=== PATIENT | male | born 1945 | race Asian ===

== ENCOUNTER 2017-11-01 13:45 | Emergency (ER) | payer MEDICARE ==
[~2017-11-01] VITALS: Ht 170.2 cm; Wt 103.9 kg
[~2017-11-01 13:45] MED LIST: ALLO100T30 PO; ALPR0.25 PO; AMIT25TA PO; AMLO5TAB2 PO; BUSP10TA PO; CETI5TAB5 PO; CHOL2000 PO; COLC0.6T37 PO; FINA5TAB4 PO; FOLI-17 PO; GUAI5SYR PO; HYDR200T72 PO; LEVO750T6 PO; LISI40TA PO; LOSA25TA5 PO; MELO7.5T31 PO; METH2.5T PO
[2017-11-01 13:46] VITALS: BP 168/77
[2017-11-01 14:28] LABS: BASOPHILS # (AUTO) 0.04 x10^3/uL (0-0.1); BASOPHILS % (AUTO) 0 % (0-1); EOSINOPHILS % (AUTO) 1 % (1-7); LYMPHOCYTES # (AUTO) 1.22 x10^3/uL (1-3.4); LYMPHOCYTES % (AUTO) 9 % (22-44); MD NO; MEAN CORPUSCULAR HEMOGLOBIN 29.6 pg (27.5-34.5); MEAN CORPUSCULAR HGB CONC 33.5 g/dL (33.2-36.2); MEAN CORPUSCULAR VOLUME 88.4 fL (81-97); MEAN PLATELET VOLUME 7.2 fL (7.4-10.4); MONOCYTES # (AUTO) 0.94 x10^3/uL (0.2-0.8); MONOCYTES % (AUTO) 7 % (2-9); NEUTROPHILS # (AUTO) 10.86 x10^3/uL (1.8-6.8); NEUTROPHILS % (AUTO) 83 % (42-75); PLATELET COUNT 239 x10^3/uL (130-400); RED BLOOD COUNT 5.07 x10^6/uL (4.38-5.82); RED CELL DISTRIBUTION WIDTH 13.6 % (9.4-14.8)
[2017-11-01 14:37] LABS: ALBUMIN 3.6 g/dL (3.4-5.0); ANION GAP 7 mmol/L (5-15); CALCIUM 8.2 mg/dL (8.5-10.1); CHLORIDE 105 mmol/L (98-107); CREATININE 1.37 mg/dL (0.7-1.3)
[2017-11-02] MEDS ORDERED: CEPH-368 PO (19:24)
== END 2017-11-01 15:35 | disposition home or self-care (01) ==
LOC: ED 15:26
DX: L03.011 Cellulitis of right finger (principal); M10.9 Gout, unspecified; M06.9 Rheumatoid arthritis, unspecified
CPT/HCPCS: 10060; 36415; 80048; 82040; 84550; 85025; 99285

== ENCOUNTER 2017-11-02 19:14 | Inpatient (IN) | payer MEDICARE ==
[~2017-11-02] VITALS: Ht 170.2 cm; Wt 107.5 kg
[2017-11-02] MEDS ORDERED: CEPH-368 PO (19:24)
[2017-11-02] MEDS ORDERED: SODIUM CHLORIDE 0.9% 1,000ML IVBOLUS ONE (19:30)
[2017-11-02] MEDS ORDERED: CLINDAMYCIN PMX 900MG/50ML 50 ML IVPB ONE (19:30)
[2017-11-02] MEDS ORDERED: SODIUM CHLORIDE FLUSH 10ML SYR IVF ONE (19:30)
[2017-11-02] MEDS ORDERED: CLINDAMYCIN PMX 900MG/50ML 50 ML ONE (19:50)
[2017-11-02 20:57] LABS: BASOPHILS # (AUTO) 0.06 x10^3/uL (0-0.1); BASOPHILS % (AUTO) 0 % (0-1); EOSINOPHILS # (AUTO) 0.01 x10^3/uL (0-0.4); EOSINOPHILS % (AUTO) 0 % (1-7); LYMPHOCYTES # (AUTO) 1.33 x10^3/uL (1-3.4); LYMPHOCYTES % (AUTO) 8 % (22-44); MD NO; MEAN CORPUSCULAR HEMOGLOBIN 29.6 pg (27.5-34.5); MEAN CORPUSCULAR VOLUME 89.6 fL (81-97); MEAN PLATELET VOLUME 7.4 fL (7.4-10.4); MONOCYTES # (AUTO) 1.27 x10^3/uL (0.2-0.8); MONOCYTES % (AUTO) 8 % (2-9); NEUTROPHILS # (AUTO) 13.51 x10^3/uL (1.8-6.8); NEUTROPHILS % (AUTO) 84 % (42-75); PLATELET COUNT 220 x10^3/uL (130-400); RED BLOOD COUNT 4.88 x10^6/uL (4.38-5.82); RED CELL DISTRIBUTION WIDTH 13.9 % (9.4-14.8)
[2017-11-02 20:59] LABS: ALBUMIN 3.2 g/dL (3.4-5.0); ANION GAP 8 mmol/L (5-15); CALCIUM 8.3 mg/dL (8.5-10.1); CHLORIDE 104 mmol/L (98-107)
[2017-11-02 21:00] LABS: CREATININE 1.57 mg/dL (0.7-1.3)
[2017-11-02] MEDS ORDERED: MORPHINE SULFATE 4 MG/ML, 1ML ONE (21:00)
[2017-11-02] MEDS ORDERED: ONDANSETRON ODT 4 MG PO ONE (21:00)
[2017-11-02] MEDS ORDERED: ONDANSETRON ODT 4 MG ONE (21:00)
[2017-11-02] MEDS ORDERED: MORPHINE SULFATE 4 MG/ML, 1ML IVPush PRN (21:00)
[2017-11-02] MEDS ORDERED: COLCHICINE 0.6 MG TABLET PO PRN (23:00)
[2017-11-02] MEDS ORDERED: ACETAMINOPHEN 325 MG TABLET PO PRN (23:00)
[2017-11-02] MEDS ORDERED: BISACODYL 10 MG SUPP PR PRN (23:00)
[2017-11-02] MEDS: SODIUM CHLORIDE FLUSH 10ML SYR IVF SCH (23:00)
[2017-11-02] MEDS: HEPARIN 5,000 UNITS/ML, 1ML SQ SCH (23:00)
[2017-11-02] MEDS ORDERED: POLYETHYLENE GLYCOL 17 GM PACKET PO PRN (23:00)
[2017-11-02] MEDS: METHOTREXATE MC SCH (23:00)
[2017-11-02] MEDS ORDERED: ONDANSETRON 2MG/ML, 2ML IVPush PRN (23:00)
[2017-11-02] MEDS: CLINDAMYCIN PMX 600MG/50ML 50 ML IV SCH (23:18)
[2017-11-03 00:23] VITALS: BP 128/70
[2017-11-03] MEDS: ALLOPURINOL 100 MG TABLET PO SCH ×3 (00:38→22:00)
[2017-11-03] MEDS: HYDROXYCHLOROQUINE 200 MG TABLET PO SCH ×3 (00:38→22:00)
[2017-11-03 05:23] LABS: MEAN CORPUSCULAR HEMOGLOBIN 29.4 pg (27.5-34.5); MEAN CORPUSCULAR HGB CONC 32.8 g/dL (33.2-36.2); MEAN CORPUSCULAR VOLUME 89.6 fL (81-97); MEAN PLATELET VOLUME 7.3 fL (7.4-10.4); PLATELET COUNT 205 x10^3/uL (130-400); RED BLOOD COUNT 4.69 x10^6/uL (4.38-5.82); RED CELL DISTRIBUTION WIDTH 13.6 % (9.4-14.8)
[2017-11-03 05:43] LABS: ALANINE AMINOTRANSFERASE 30 U/L (12-78); ANION GAP 7 mmol/L (5-15); CALCIUM 7.8 mg/dL (8.5-10.1); CHLORIDE 105 mmol/L (98-107); CREATININE 1.42 mg/dL (0.7-1.3)
[2017-11-03 05:46] LABS: ALKALINE PHOSPHATASE 63 U/L (45-117); BILIRUBIN,TOTAL 0.9 mg/dL (0.2-1.0); TOTAL PROTEIN 7.2 g/dL (6.4-8.2)
[2017-11-03 05:55] LABS: BASOPHILS # (AUTO) 0.05 x10^3/uL (0-0.1); BASOPHILS % (AUTO) 0 % (0-1); EOSINOPHILS # (AUTO) 0.04 x10^3/uL (0-0.4); EOSINOPHILS % (AUTO) 0 % (1-7); LYMPHOCYTES # (AUTO) 1.21 x10^3/uL (1-3.4); LYMPHOCYTES % (AUTO) 9 % (22-44); MD SCAN; MONOCYTES # (AUTO) 1.55 x10^3/uL (0.2-0.8); MONOCYTES % (AUTO) 11 % (2-9); NEUTROPHILS # (AUTO) 11.46 x10^3/uL (1.8-6.8); NEUTROPHILS % (AUTO) 80 % (42-75)
[2017-11-03] MEDS: CLINDAMYCIN PMX 600MG/50ML 50 ML IV SCH ×3 (06:24→22:00)
[2017-11-03] MEDS: OXYcodone IR 5MG TABLET PO PRN ×3 (06:25→22:02)
[2017-11-03 06:50] VITALS: BP 119/62
[2017-11-03] MEDS: METHOTREXATE MC SCH ×3 (07:00→23:00)
[2017-11-03] MEDS: HEPARIN 5,000 UNITS/ML, 1ML SQ SCH ×3 (08:40→21:59)
[2017-11-03] MEDS: FINASTERIDE 5 MG TABLET PO SCH (08:40)
[2017-11-03] MEDS: CHOLECALCIFEROL 1,000 UNIT TABLET PO SCH (08:40)
[2017-11-03] MEDS: LOSARTAN 25MG TABLET PO SCH (08:40)
[2017-11-03] MEDS: SENNA/DOCUSATE TABLET PO SCH (08:40)
[2017-11-03] MEDS: CETIRIZINE 10 MG TABLET PO SCH (08:41)
[2017-11-03] MEDS: AMLODIPINE 5 MG TABLET PO SCH (08:41)
[2017-11-03] MEDS: FOLIC ACID 1 MG TABLET PO SCH (08:41)
[2017-11-03] MEDS ORDERED: MELOXICAM 15 MG TABLET PO SCH (09:00)
[2017-11-03] MEDS: SODIUM CHLORIDE FLUSH 10ML SYR IVF SCH ×2 (09:00→21:00)
[2017-11-03 13:20] VITALS: BP 100/53
[2017-11-03] MEDS ORDERED: GADOBUTROL 10 MMOL/10 ML PFS ONE (18:02)
[2017-11-03 20:06] VITALS: BP 123/65
[2017-11-03] MEDS ORDERED: METHOTREXATE 2.5 MG TABLET PO ONE (23:00)
[2017-11-04 01:04] VITALS: BP 120/67
[2017-11-04] MEDS: CLINDAMYCIN PMX 600MG/50ML 50 ML IV SCH ×3 (06:33→23:12)
[2017-11-04 07:00] LABS: MEAN CORPUSCULAR HEMOGLOBIN 29.4 pg (27.5-34.5); MEAN CORPUSCULAR HGB CONC 32.9 g/dL (33.2-36.2); MEAN CORPUSCULAR VOLUME 89.5 fL (81-97); MEAN PLATELET VOLUME 7.1 fL (7.4-10.4); PLATELET COUNT 212 x10^3/uL (130-400); RED BLOOD COUNT 4.49 x10^6/uL (4.38-5.82); RED CELL DISTRIBUTION WIDTH 13.6 % (9.4-14.8)
[2017-11-04] MEDS: METHOTREXATE MC SCH ×3 (07:00→19:15)
[2017-11-04 07:05] LABS: CHLORIDE 105 mmol/L (98-107)
[2017-11-04 07:06] LABS: ALANINE AMINOTRANSFERASE 38 U/L (12-78); ALBUMIN 2.8 g/dL (3.4-5.0); ANION GAP 8 mmol/L (5-15); CALCIUM 7.7 mg/dL (8.5-10.1); CREATININE 1.54 mg/dL (0.7-1.3)
[2017-11-04 07:08] LABS: ALKALINE PHOSPHATASE 66 U/L (45-117); BILIRUBIN,TOTAL 0.6 mg/dL (0.2-1.0); TOTAL PROTEIN 7.2 g/dL (6.4-8.2)
[2017-11-04 07:17] LABS: MD YES
[2017-11-04 07:18] LABS: <PLATELET ESTIMATE> ADEQUATE; <PLT MORPHOLOGY> NORMAL PLT MORPH; <RBC MORPHOLOGY> NORMAL; BAND#(MANUAL) 0.21 x10^3/uL; BANDS%(MANUAL) 2 % (0-7); BASOS% (MANUAL) 1 % (0-1); EOS#(MANUAL) 0.21 x10^3/uL (0.0-0.4); EOS% (MANUAL) 2 % (1-7); LYMPH#(MANUAL) 1.56 x10^3/uL (1-3.4); LYMPHS% (MANUAL) 15 % (22-44); MONOS#(MANUAL) 1.04 x10^3/uL (0.3-2.7); MONOS% (MANUAL) 10 % (2-9); MYELOCYTES% (MANUAL) 1 % (0-0); SEG#(MANUAL) 7.18 x10^3/uL (1.8-6.8); SEGS% (MANUAL) 69 % (42-75); TOXIC GRAN 1+
[2017-11-04 07:50] VITALS: BP 133/68
[2017-11-04] MEDS: SODIUM CHLORIDE FLUSH 10ML SYR IVF SCH ×2 (09:00→21:00)
[2017-11-04] MEDS: HYDROXYCHLOROQUINE 200 MG TABLET PO SCH ×2 (09:00→21:45)
[2017-11-04] MEDS: HEPARIN 5,000 UNITS/ML, 1ML SQ SCH (09:00)
[2017-11-04] MEDS: CHOLECALCIFEROL 1,000 UNIT TABLET PO SCH (09:01)
[2017-11-04] MEDS: CETIRIZINE 10 MG TABLET PO SCH (09:01)
[2017-11-04] MEDS: SENNA/DOCUSATE TABLET PO SCH (09:01)
[2017-11-04] MEDS: AMLODIPINE 5 MG TABLET PO SCH (09:01)
[2017-11-04] MEDS: LOSARTAN 25MG TABLET PO SCH (09:01)
[2017-11-04] MEDS: FOLIC ACID 1 MG TABLET PO SCH (09:01)
[2017-11-04] MEDS: FINASTERIDE 5 MG TABLET PO SCH (09:01)
[2017-11-04] MEDS: ALLOPURINOL 100 MG TABLET PO SCH ×2 (09:01→21:45)
[2017-11-04 14:23] VITALS: BP 151/73
[2017-11-04] MEDS: OXYcodone IR 5MG TABLET PO PRN (15:00)
[2017-11-04] MEDS ORDERED: BUPIVACAINE/PF 0.25% ONE (16:14)
[2017-11-04] MEDS ORDERED: MIDAZOLAM 1 MG/ML, 2ML ONE (16:17)
[2017-11-04] MEDS ORDERED: FENTANYL PF 250 MCG/5ML ONE (16:17)
[2017-11-04] MEDS ORDERED: CEFAZOLIN 1,000 MG ONE (16:21)
[2017-11-04] MEDS ORDERED: SUCCINYLCHOLINE 20 MG/ML, 10ML ONE (16:21)
[2017-11-04] MEDS ORDERED: ROCURONIUM 10MG/ML,5ML ONE (16:21)
[2017-11-04] MEDS ORDERED: PROPOFOL 10 MG/ML, 20ML ONE (16:21)
[2017-11-04] MEDS ORDERED: BUPIVACAINE/PF 0.25% INFIL ONE (16:38)
[2017-11-04] MEDS ORDERED: ONDANSETRON 2MG/ML, 2ML IVPush PRN (17:00)
[2017-11-04] MEDS ORDERED: hydrALAzine 20 MG/ML, 1ML IV PRN (17:00)
[2017-11-04] MEDS ORDERED: OXYcodone 5 MG/5 ML ORAL.SOL UDC PO PRN (17:00)
[2017-11-04] MEDS ORDERED: MEPERIDINE/PF 25MG/0.5ML IVPush PRN (17:00)
[2017-11-04] MEDS ORDERED: PROMETHAZINE 25 MG/ML, 1ML IV PRN (17:00)
[2017-11-04] MEDS ORDERED: HYDROmorphone 1 MG/ML, 1ML IV PRN (17:00)
[2017-11-04] MEDS ORDERED: LABETALOL 5MG/ML, 20ML IV PRN (17:00)
[2017-11-04] MEDS ORDERED: KETOROLAC 30 MG/1 ML IV PRN (17:00)
[2017-11-04] MEDS ORDERED: ALBUTEROL SULFATE 2.5 MG/3 ML NPPB PRN (17:00)
[2017-11-04] MEDS ORDERED: FENTANYL PF 100 MCG/2ML IV PRN (17:00)
[2017-11-04] MEDS ORDERED: OXYcodone 5 MG/5 ML ORAL.SOL UDC ONE (17:27)
[2017-11-04] MEDS ORDERED: FENTANYL PF 100 MCG/2ML ONE (17:37)
[2017-11-04 19:15] VITALS: BP 159/76
[2017-11-05 02:15] VITALS: BP 107/51
[2017-11-05 05:15] LABS: BASOPHILS # (AUTO) 0.02 x10^3/uL (0-0.1); BASOPHILS % (AUTO) 0 % (0-1); EOSINOPHILS # (AUTO) 0.21 x10^3/uL (0-0.4); EOSINOPHILS % (AUTO) 2 % (1-7); LYMPHOCYTES % (AUTO) 16 % (22-44); MD NO; MEAN CORPUSCULAR HEMOGLOBIN 29.7 pg (27.5-34.5); MEAN CORPUSCULAR HGB CONC 33.1 g/dL (33.2-36.2); MEAN CORPUSCULAR VOLUME 89.6 fL (81-97); MEAN PLATELET VOLUME 7.7 fL (7.4-10.4); MONOCYTES # (AUTO) 1.09 x10^3/uL (0.2-0.8); MONOCYTES % (AUTO) 12 % (2-9); NEUTROPHILS # (AUTO) 6.14 x10^3/uL (1.8-6.8); NEUTROPHILS % (AUTO) 69 % (42-75); PLATELET COUNT 214 x10^3/uL (130-400); RED BLOOD COUNT 4.28 x10^6/uL (4.38-5.82); RED CELL DISTRIBUTION WIDTH 13.4 % (9.4-14.8)
[2017-11-05 05:17] LABS: ALBUMIN 2.6 g/dL (3.4-5.0); ANION GAP 5 mmol/L (5-15); CALCIUM 7.5 mg/dL (8.5-10.1); CHLORIDE 106 mmol/L (98-107)
[2017-11-05 05:21] LABS: ALANINE AMINOTRANSFERASE 39 U/L (12-78); ALKALINE PHOSPHATASE 72 U/L (45-117); BILIRUBIN,TOTAL 0.5 mg/dL (0.2-1.0); CREATININE 1.54 mg/dL (0.7-1.3); TOTAL PROTEIN 6.7 g/dL (6.4-8.2)
[2017-11-05] MEDS: METHOTREXATE MC SCH ×3 (07:00→23:00)
[2017-11-05 08:04] VITALS: BP 133/57
[2017-11-05] MEDS: HYDROXYCHLOROQUINE 200 MG TABLET PO SCH ×2 (08:32→22:07)
[2017-11-05] MEDS: FINASTERIDE 5 MG TABLET PO SCH (08:32)
[2017-11-05] MEDS: CHOLECALCIFEROL 1,000 UNIT TABLET PO SCH (08:32)
[2017-11-05] MEDS: POTASSIUM CHLORIDE 20 MEQ PACKET PO SCH (08:32)
[2017-11-05] MEDS: AMLODIPINE 5 MG TABLET PO SCH (08:32)
[2017-11-05] MEDS: LOSARTAN 25MG TABLET PO SCH (08:32)
[2017-11-05] MEDS: ALLOPURINOL 100 MG TABLET PO SCH ×2 (08:33→22:07)
[2017-11-05] MEDS: CLINDAMYCIN PMX 600MG/50ML 50 ML IV SCH ×2 (08:33→16:44)
[2017-11-05] MEDS: CETIRIZINE 10 MG TABLET PO SCH (08:33)
[2017-11-05] MEDS: FOLIC ACID 1 MG TABLET PO SCH (08:33)
[2017-11-05] MEDS: SENNA/DOCUSATE TABLET PO SCH (08:34)
[2017-11-05] MEDS: SODIUM CHLORIDE FLUSH 10ML SYR IVF SCH ×2 (09:00→22:07)
[2017-11-05 13:20] VITALS: BP 130/57
[2017-11-05 20:00] VITALS: BP 114/59
[2017-11-05] MEDS: OXYcodone IR 5MG TABLET PO PRN (22:07)
[2017-11-06] MEDS: CLINDAMYCIN PMX 600MG/50ML 50 ML IV SCH ×2 (00:41→09:00)
[2017-11-06 01:19] VITALS: BP 126/65
[2017-11-06 05:20] LABS: ANION GAP 6 mmol/L (5-15); CALCIUM 8.2 mg/dL (8.5-10.1); CHLORIDE 106 mmol/L (98-107)
[2017-11-06 05:21] LABS: CREATININE 1.27 mg/dL (0.7-1.3)
[2017-11-06 05:27] LABS: BASOPHILS # (AUTO) 0.02 x10^3/uL (0-0.1); BASOPHILS % (AUTO) 0 % (0-1); EOSINOPHILS # (AUTO) 0.27 x10^3/uL (0-0.4); EOSINOPHILS % (AUTO) 4 % (1-7); LYMPHOCYTES # (AUTO) 1.47 x10^3/uL (1-3.4); LYMPHOCYTES % (AUTO) 23 % (22-44); MD NO; MEAN CORPUSCULAR HEMOGLOBIN 29.6 pg (27.5-34.5); MEAN CORPUSCULAR HGB CONC 33.3 g/dL (33.2-36.2); MEAN PLATELET VOLUME 7.4 fL (7.4-10.4); MONOCYTES # (AUTO) 0.71 x10^3/uL (0.2-0.8); MONOCYTES % (AUTO) 11 % (2-9); NEUTROPHILS # (AUTO) 3.96 x10^3/uL (1.8-6.8); NEUTROPHILS % (AUTO) 62 % (42-75); PLATELET COUNT 229 x10^3/uL (130-400); RED BLOOD COUNT 4.45 x10^6/uL (4.38-5.82); RED CELL DISTRIBUTION WIDTH 13.3 % (9.4-14.8)
[2017-11-06] MEDS: METHOTREXATE MC SCH (07:00)
[2017-11-06 07:06] VITALS: BP 145/73
[2017-11-06] MEDS: POTASSIUM CHLORIDE 20 MEQ PACKET PO SCH (09:00)
[2017-11-06] MEDS: CETIRIZINE 10 MG TABLET PO SCH (09:00)
[2017-11-06] MEDS: SENNA/DOCUSATE TABLET PO SCH (09:00)
[2017-11-06] MEDS: FOLIC ACID 1 MG TABLET PO SCH (09:00)
[2017-11-06] MEDS: FINASTERIDE 5 MG TABLET PO SCH (09:00)
[2017-11-06] MEDS: CHOLECALCIFEROL 1,000 UNIT TABLET PO SCH (09:01)
[2017-11-06] MEDS: SODIUM CHLORIDE FLUSH 10ML SYR IVF SCH (09:01)
[2017-11-06] MEDS: LOSARTAN 25MG TABLET PO SCH (09:01)
[2017-11-06] MEDS: HYDROXYCHLOROQUINE 200 MG TABLET PO SCH (09:01)
[2017-11-06] MEDS: AMLODIPINE 5 MG TABLET PO SCH (09:01)
[2017-11-06] MEDS: ALLOPURINOL 100 MG TABLET PO SCH (09:01)
[2017-11-06] MEDS ORDERED: CLIN300C8 PO (10:14)
== END 2017-11-06 11:55 | disposition home health service (06) | DRG 981 ==
LOC: ED 21:00 → 3NE 21:11 → DCLOUNGE 11-06 11:40
PROVIDERS: ADMIT Hospitalist; ATTEND Hospitalist
PROC: 0H9FXZZ Drainage of Right Hand Skin, External Approach (ICD-10-PCS; 2017-11-02)
PROC: 0LB70ZZ Excision of Right Hand Tendon, Open Approach (ICD-10-PCS; principal; 2017-11-04 16:30)
DX: L02.511 Cutaneous abscess of right hand (principal); N17.0 Acute kidney failure with tubular necrosis; E87.1 Hypo-osmolality and hyponatremia; E44.1 Mild protein-calorie malnutrition; L03.011 Cellulitis of right finger; M06.9 Rheumatoid arthritis, unspecified; M10.9 Gout, unspecified; Z68.37 Body mass index [BMI] 37.0-37.9, adult; E87.6 Hypokalemia; F32.9 Major depressive disorder, single episode, unspecified; F41.1 Generalized anxiety disorder; I12.9 Hypertensive chronic kidney disease with stage 1 through stage 4 chronic kidney disease, or unspecified chronic kidney disease; M19.90 Unspecified osteoarthritis, unspecified site; N18.9 Chronic kidney disease, unspecified; N40.0 Benign prostatic hyperplasia without lower urinary tract symptoms
CPT/HCPCS: 10060; 36415; 80048; 80053; 82040; 85025; 87040; 87070; 87075; 87147; 87205; 96365; 96375; A9585; J0690; J1644; J2250; J2704; J3010; J3490; Q0162; J0330

== ENCOUNTER 2018-04-10 08:19 | Emergency (ER) | payer MEDICARE ==
[~2018-04-10] VITALS: Ht 170.2 cm; Wt 106.1 kg
[~2018-04-10 08:19] MED LIST changes: -AMLO5TAB2 PO; +AMLO5TAB7 PO; +CEPH-368 PO; +CLIN300C8 PO; -LOSA25TA5 PO; +LOSA25TA6 PO
[2018-04-10 08:23] VITALS: BP 162/64
[2018-04-10] MEDS ORDERED: LIDOCAINE-MPF 1%, 5ML ONE (09:33)
[2018-04-10] MEDS ORDERED: LIDOCAINE-MPF 1%, 5ML INFIL ONE (10:00)
== END 2018-04-10 11:40 | disposition home or self-care (01) ==
LOC: ED 10:52
DX: L02.416 Cutaneous abscess of left lower limb (principal); F41.1 Generalized anxiety disorder; F32.9 Major depressive disorder, single episode, unspecified; I10 Essential (primary) hypertension; E78.00 Pure hypercholesterolemia, unspecified; M06.9 Rheumatoid arthritis, unspecified; M10.9 Gout, unspecified
CPT/HCPCS: 10060; 99283

== ENCOUNTER 2018-04-13 08:50 | Emergency (ER) | payer MEDICARE ==
[~2018-04-13] VITALS: Ht 170.2 cm; Wt 106.0 kg
[~2018-04-13 08:50] MED LIST changes: +AMLO-150 PO; -AMLO5TAB7 PO
[2018-04-13 08:53] VITALS: BP 165/68
== END 2018-04-13 09:21 | disposition home or self-care (01) ==
LOC: ED 09:02
DX: L02.416 Cutaneous abscess of left lower limb (principal); E78.00 Pure hypercholesterolemia, unspecified; I10 Essential (primary) hypertension
CPT/HCPCS: 99283

== ENCOUNTER 2018-05-11 10:28 | Emergency (ER) | payer MEDICARE ==
[~2018-05-11] VITALS: Ht 170.2 cm; Wt 103.1 kg
[~2018-05-11 10:28] MED LIST changes: +LOSA25TA25 PO; -LOSA25TA6 PO
[2018-05-11 10:48] VITALS: BP 156/74
[2018-05-11] MEDS ORDERED: BACITRACIN ZINC OINT 500U/GM, 0.9 GM ONE (11:39)
== END 2018-05-11 12:01 | disposition home or self-care (01) ==
LOC: ED 11:55
DX: L02.212 Cutaneous abscess of back [any part, except buttock and flank] (principal); E78.00 Pure hypercholesterolemia, unspecified; I10 Essential (primary) hypertension; F32.9 Major depressive disorder, single episode, unspecified; M06.9 Rheumatoid arthritis, unspecified
CPT/HCPCS: 99283

== ENCOUNTER 2018-05-13 09:49 | Emergency (ER) | payer MEDICARE ==
[~2018-05-13] VITALS: Ht 170.2 cm; Wt 103.0 kg
[2018-05-13] MEDS ORDERED: LORazepam 1MG TABLET PO ONE (10:00)
[2018-05-13] MEDS ORDERED: LIDOCAINE 1%, 10ML INFIL ONE (10:00)
[2018-05-13 10:11] VITALS: BP 135/62
[2018-05-13 10:31] LABS: ALANINE AMINOTRANSFERASE 26 U/L (12-78); ALBUMIN 3.6 g/dL (3.4-5.0); ANION GAP 9 mmol/L (5-15); CALCIUM 8.3 mg/dL (8.5-10.1); CHLORIDE 104 mmol/L (98-107)
[2018-05-13 10:34] LABS: ALKALINE PHOSPHATASE 88 U/L (45-117); BILIRUBIN,TOTAL 0.4 mg/dL (0.2-1.0); TOTAL PROTEIN 8.3 g/dL (6.4-8.2)
--- NOTE | 2018-05-13 11:41 | NUR ---
ERP ID ABSCESS ON THE BACK PT HAD PRIOR TX ON THIS ABSCESS BUT NEVER CHGD DRESSING PT GIVEN FURTHER INSTRUCTION ON WOUND CARE
== END 2018-05-13 11:44 | disposition home or self-care (01) ==
LOC: ED 10:28
DX: L02.413 Cutaneous abscess of right upper limb (principal); J70.5 Respiratory conditions due to smoke inhalation; I10 Essential (primary) hypertension; F41.1 Generalized anxiety disorder; F32.9 Major depressive disorder, single episode, unspecified; X08.8XXA Exposure to other specified smoke, fire and flames, initial encounter; Y93.89 Activity, other specified; Y92.009 Unspecified place in unspecified non-institutional (private) residence as the place of occurrence of the external cause; Y99.8 Other external cause status
CPT/HCPCS: 10060; 36415; 80053; 83605; 99283; J3490

== ENCOUNTER 2018-06-05 10:35 | Emergency (ER) | payer MEDICARE ==
[~2018-06-05] VITALS: Ht 170.2 cm; Wt 105.9 kg
[2018-06-05 10:54] VITALS: BP 142/67
== END 2018-06-05 12:06 | disposition home or self-care (01) ==
LOC: ED 11:25
DX: L02.811 Cutaneous abscess of head [any part, except face] (principal); I10 Essential (primary) hypertension; E78.00 Pure hypercholesterolemia, unspecified; M10.9 Gout, unspecified
CPT/HCPCS: 99283

== ENCOUNTER 2018-06-07 09:16 | Emergency (ER) | payer MEDICARE ==
[~2018-06-07] VITALS: Ht 170.2 cm; Wt 104.8 kg
[2018-06-07 09:23] VITALS: BP 137/70
--- NOTE | 2018-06-07 09:25 | NUR ---
PT TO [id number] IN NAD
== END 2018-06-07 10:01 | disposition home or self-care (01) ==
LOC: ED 09:55
DX: Z48.01 Encounter for change or removal of surgical wound dressing (principal); I10 Essential (primary) hypertension; E78.00 Pure hypercholesterolemia, unspecified; M06.9 Rheumatoid arthritis, unspecified
CPT/HCPCS: 99281

== ENCOUNTER 2018-06-21 14:54 | Emergency (ER) | payer MEDICARE ==
[~2018-06-21] VITALS: Ht 170.2 cm; Wt 107.0 kg
[2018-06-21 14:58] VITALS: BP 171/80
[2018-06-21 15:47] LABS: RAPID INFLUENZA A POSITIVE (Negative); RAPID INFLUENZA B Negative (Negative)
== END 2018-06-21 16:35 | disposition home or self-care (01) ==
LOC: ED 16:05
DX: J10.1 Influenza due to other identified influenza virus with other respiratory manifestations (principal); I10 Essential (primary) hypertension; Z87.01 Personal history of pneumonia (recurrent)
CPT/HCPCS: 71046; 87400; 99284

== ENCOUNTER 2018-08-15 17:03 | Emergency (ER) | payer MEDICARE, MEDICAID ==
[~2018-08-15] VITALS: Ht 170.2 cm; Wt 104.0 kg
[~2018-08-15 17:03] MED LIST changes: +AMLO10TA8 PO; +CITA10TA4 PO; +FEBU40TA PO; +LOSA100T14 PO
[2018-08-15 17:46] LABS: BASOPHILS # (AUTO) 0.02 x10^3/uL (0-0.1); BASOPHILS % (AUTO) 0 % (0-1); EOSINOPHILS # (AUTO) 0.21 x10^3/uL (0-0.4); EOSINOPHILS % (AUTO) 3 % (1-7); LYMPHOCYTES # (AUTO) 1.95 x10^3/uL (1-3.4); LYMPHOCYTES % (AUTO) 26 % (22-44); MD NO; MEAN CORPUSCULAR HEMOGLOBIN 29.6 pg (27.5-34.5); MEAN CORPUSCULAR HGB CONC 33.4 g/dL (33.2-36.2); MEAN CORPUSCULAR VOLUME 88.6 fL (81-97); MEAN PLATELET VOLUME 7.4 fL (7.4-10.4); MONOCYTES # (AUTO) 0.65 x10^3/uL (0.2-0.8); MONOCYTES % (AUTO) 9 % (2-9); NEUTROPHILS # (AUTO) 4.69 x10^3/uL (1.8-6.8); NEUTROPHILS % (AUTO) 62 % (42-75); PLATELET COUNT 265 x10^3/uL (130-400); RED BLOOD COUNT 4.73 x10^6/uL (4.38-5.82); RED CELL DISTRIBUTION WIDTH 14.4 % (9.4-14.8)
[2018-08-15 17:59] LABS: ALBUMIN 3.8 g/dL (3.4-5.0); ANION GAP 7 mmol/L (5-15); CALCIUM 8.2 mg/dL (8.5-10.1); CHLORIDE 108 mmol/L (98-107)
[2018-08-15 18:05] LABS: ALANINE AMINOTRANSFERASE 34 U/L (12-78); ALKALINE PHOSPHATASE 86 U/L (45-117); BILIRUBIN,TOTAL 0.4 mg/dL (0.2-1.0); CREATININE 1.34 mg/dL (0.7-1.3); TOTAL PROTEIN 8.2 g/dL (6.4-8.2); TROPONIN I < 0.015 ng/mL (0.000-0.045)
--- NOTE | 2018-08-15 18:08 | NUR ---
FIRST CONTACTWITH PT. Pt resting on gurney connected to learning and development associate, NIBP, and continous pulse ox. Pt states, "I have pain right here (right and left lateral sides of abdomen) when I turn, and I get short of breath because I have too much coughing. I was here on Monday. I have had this for one week." NADN. Pt speaking in full sentences. Pt's famiy at bedside. All safety measures in place. Call light within reach. Pt denies cp, n/v/d, trauma, syncope, or dizziness.
[2018-08-15] MEDS ORDERED: BENZONATATE 100 MG CAPSULE PO ONE (18:30)
[2018-08-15] MEDS ORDERED: BENZONATATE 100 MG CAPSULE ONE (18:45)
--- NOTE | 2018-08-15 18:47 | NUR ---
Provided pt medication per [facility].
[2018-08-15 18:56] VITALS: BP 136/66
--- NOTE | 2018-08-15 18:56 | NUR ---
REPORT RECEIVED FROM YEN ASHLEY. ASSUMED CARE OF PT.
== END 2018-08-15 18:58 | disposition home or self-care (01) ==
LOC: ED 18:50
DX: J20.8 Acute bronchitis due to other specified organisms (principal); I10 Essential (primary) hypertension; F32.9 Major depressive disorder, single episode, unspecified; E78.00 Pure hypercholesterolemia, unspecified
CPT/HCPCS: 36415; 71046; 80053; 83880; 84484; 85025; 93005; 99284

== ENCOUNTER 2018-08-25 13:08 | Emergency (ER) | payer MEDICARE, MEDICAID ==
[~2018-08-25] VITALS: Ht 170.2 cm; Wt 105.4 kg
[2018-08-25] MEDS ORDERED: ALBUTEROL/IPRATROPIUM 2.5MG/0.5MG, 3 ML NPPB ONE (13:30)
[2018-08-25 13:59] LABS: BASOPHILS # (AUTO) 0.08 x10^3/uL (0-0.1); BASOPHILS % (AUTO) 1 % (0-1); EOSINOPHILS # (AUTO) 0.32 x10^3/uL (0-0.4); EOSINOPHILS % (AUTO) 3 % (1-7); LYMPHOCYTES # (AUTO) 1.35 x10^3/uL (1-3.4); LYMPHOCYTES % (AUTO) 14 % (22-44); MD NO; MEAN CORPUSCULAR HEMOGLOBIN 28.8 pg (27.5-34.5); MEAN CORPUSCULAR VOLUME 87.2 fL (81-97); MEAN PLATELET VOLUME 6.6 fL (7.4-10.4); MONOCYTES # (AUTO) 1.01 x10^3/uL (0.2-0.8); MONOCYTES % (AUTO) 11 % (2-9); NEUTROPHILS # (AUTO) 6.83 x10^3/uL (1.8-6.8); NEUTROPHILS % (AUTO) 71 % (42-75); PLATELET COUNT 334 x10^3/uL (130-400); RED BLOOD COUNT 4.44 x10^6/uL (4.38-5.82)
[2018-08-25] MEDS ORDERED: ALBUTEROL/IPRATROPIUM 2.5MG/0.5MG, 3 ML ONE (14:05)
[2018-08-25 14:10] LABS: ALANINE AMINOTRANSFERASE 49 U/L (12-78); ALBUMIN 3.2 g/dL (3.4-5.0); ANION GAP 7 mmol/L (5-15); CHLORIDE 107 mmol/L (98-107); CREATININE 1.33 mg/dL (0.7-1.3)
--- NOTE | 2018-08-25 14:10 | NUR ---
PT RECEIVING BREATHING TX
[2018-08-25 14:14] LABS: ALKALINE PHOSPHATASE 81 U/L (45-117); BILIRUBIN,TOTAL 0.5 mg/dL (0.2-1.0); TOTAL PROTEIN 7.7 g/dL (6.4-8.2); TROPONIN I < 0.015 ng/mL (0.000-0.045)
[2018-08-25] MEDS ORDERED: B CO1CAP5 PO (14:18)
[2018-08-25] MEDS ORDERED: BENZ-17 PO (14:18)
[2018-08-25] MEDS ORDERED: FEBU40TA PO (14:18)
[2018-08-25] MEDS ORDERED: MONT10TA9 PO (14:18)
[2018-08-25] MEDS ORDERED: HYDR200T72 PO (14:18)
--- NOTE | 2018-08-25 14:59 | NUR ---
IV ESTABLISHED. RESTING WITH EYES CLOSED. AWAITING CTA
[2018-08-25] MEDS ORDERED: OMNIPAQUE 350 MG/ML, 100ML BOTTLE ONE (15:41)
--- NOTE | 2018-08-25 16:02 | NUR ---
CT COMPLETED. CONTINUE TO MONTIOR. RESTING WITH EYES CLOSED
[2018-08-25] MEDS ORDERED: CEFTRIAXONE PMX 1GM/50ML 50 ML ONE (16:28)
[2018-08-25] MEDS ORDERED: CEFTRIAXONE PMX 1GM/50ML 50 ML IVPB ONE (16:30)
--- NOTE | 2018-08-25 16:40 | NUR ---
IV ABX started, pt and family aware of plan to discharge after medication is infused.
[2018-08-25 17:29] VITALS: BP 124/72
== END 2018-08-25 17:32 | disposition home or self-care (01) ==
LOC: ED 14:00
DX: J15.9 Unspecified bacterial pneumonia (principal); R06.00 Dyspnea, unspecified
CPT/HCPCS: 36415; 71046; 71275; 80053; 83880; 84484; 85025; 93005; 94640; 96365; 99284; J0696; J7620; Q9967

== ENCOUNTER 2020-06-25 09:50 | Emergency (ER) | payer MEDICARE, MEDICAID ==
[~2020-06-25] VITALS: Ht 170.2 cm; Wt 110.1 kg
[~2020-06-25 09:50] MED LIST changes: +AMLO-211 PO; -AMLO10TA8 PO; +B CO1CAP5 PO; +BENZ-17 PO; -CLIN300C8 PO; +CLIN300C9 PO; -FOLI-17 PO; +FOLI1TAB32 PO; -LISI40TA PO; +LISI40TA9 PO; +MONT10TA17 PO
[2020-06-25 09:54] VITALS: BP 170/86
[2020-06-25] MEDS ORDERED: LIDOCAINE-MPF 1%, 5ML ONE (10:06)
[2020-06-25] MEDS ORDERED: LIDOCAINE-MPF 2% ,5ML ONE (10:14)
[2020-06-25] MEDS ORDERED: LIDOCAINE-MPF 2%, 2ML INFIL ONE (10:30)
--- NOTE | 2020-06-25 10:40 | NUR ---
EDP AT BEDSIDE TO SUTURE.
== END 2020-06-25 11:21 | disposition home or self-care (01) ==
LOC: ED 11:12
DX: S01.511A Laceration without foreign body of lip, initial encounter (principal); I10 Essential (primary) hypertension; X58.XXXA Exposure to other specified factors, initial encounter; Y93.89 Activity, other specified; Y92.89 Other specified places as the place of occurrence of the external cause; Y99.8 Other external cause status
CPT/HCPCS: 12011; 99282

== ENCOUNTER 2020-07-01 08:37 | Emergency (ER) | payer MEDICARE, MEDICAID ==
[~2020-07-01] VITALS: Ht 170.2 cm; Wt 109.4 kg
[2020-07-01 08:42] VITALS: BP 154/75
--- NOTE | 2020-07-01 09:29 | NUR ---
ARTURO Solano at bedside to remove sutures. Tolerated well.
--- NOTE | 2020-07-01 09:37 | NUR ---
This RN assessed lip after suture removal. 5 of 5 sutures removed.
== END 2020-07-01 09:39 | disposition home or self-care (01) ==
LOC: ED 09:32
DX: S01.511D Laceration without foreign body of lip, subsequent encounter (principal); X58.XXXD Exposure to other specified factors, subsequent encounter
CPT/HCPCS: 99281